=== PATIENT | female | born 1960 | race Caucasian/White ===

== ENCOUNTER → 2020-04-26 11:43 | Outpatient (CLI) | payer OTHER, SELFPAY ==
[2020-04-27 14:06] LABS: COVID19 Sendout Not Detected (Not Detect)
== END ==
PROVIDERS: Visit Provider Family Medicine
DX: Z11.59 Encounter for screening for other viral diseases (principal)
CPT/HCPCS: 87635

== ENCOUNTER 2020-04-30 10:25 | Observation (INO) | payer OTHER, SELFPAY ==
[2020-04-22 08:44] VITALS: BMI 29.2
[2020-04-29] VITALS (17 sets, daily range): BP systolic 78–133; BP diastolic 31–80; PULSE 5–70; RESP 9–17; TEMP 35.9–37.6; O2SAT 91–100; BMI 29.2
[2020-04-29] MEDS: ACETAMINOPHEN 325 MG TABLET 975 MG PO (11:10)
[2020-04-29] MEDS: LACTATED RINGERS 1,000 ML 42 ML IV ×2 (11:36→15:20)
--- NOTE | 2020-04-29 12:36 | PM.PREOP ---
Pre-operative Note COVID-19 COVID-19 status: Negative Result date/Date tested (Pos, Neg/Pending): 04/27/20 Interval Note History & Physical reviewed/Exam performed by Physician: Yes Changes to H&P: No
--- NOTE | 2020-04-29 13:00 | DI.RAD.S_ITS ---
PROCEDURE: XR PELVIS 1-2V INDICATIONS: Post Op TECHNIQUE: 1 view of the lower pelvis acquired. COMPARISON: [facility] [place], [place], XR PELVIS WITH LATERAL HIP RIGHT, 03/19/2020, 13:37. FINDINGS: Bones: Patient is status post right hip arthroplasty, with hardware components in expected positions. The hip joint appears congruent. The visualized bony structures appear intact. Soft tissues: Overlying postoperative changes are noted. No suspicious soft tissue densities. IMPRESSION: Status post right hip arthroplasty. Dictated by: Felipa Eldridge M.D. on 04/29/2020 at 15:50 Approved by: Felipa Eldridge M.D. on 04/29/2020 at 15:50
[2020-04-29] MEDS: CEFAZOLIN 2 GM/100 ML FROZ.PIGGY IV (13:19)
--- NOTE | 2020-04-29 13:49 | SUR.OPER ---
Lateral on padded OR bed. Gel axillary roll. Arms secured on padded armboard with pillow supporting top arm. Padded hip positioner braces x4 - anterior and posterior chest and pelvis. Additional gel pad used anterior pelvis. Gel pad under bottom leg from knee to foot and secured with tape over sheet.
[2020-04-29] MEDS: TRANEXAMIC ACID 1,000 MG VIAL 2000 MG INJ ×2 (13:52→14:38)
[2020-04-29] MEDS: MORPHINE 4 MG/ML INJ INJ (13:53)
[2020-04-29] MEDS: ROPIVACAINE 0.5% PF 5 MG/ML 20ML VIAL 60 ML INJ (13:53)
--- NOTE | 2020-04-29 14:50 | PM.OP.1 ---
Operative Date/Time/Diagnoses Date of procedure: 04/29/20 Time of procedure: 14:50 Pre-op diagnosis: Right hip degenerative joint disease Post-op diagnosis: same Procedure & Clinicians Procedure: Right total hip arthroplasty (CPT code 27200 with captain assistant) Same procedure as scheduled: Yes Indications: Patient is an 59-year-old female with severe right hip DJD. The patient has pain with activities and at rest, limited ambulation and activity tolerance, difficulties with ADLs, and failure of conservative treatment. We have discussed the nature of condition, treatment options, risks and benefits, and patient elects to proceed with total hip arthroplasty and gives informed consent. Surgeon: Amari Scott Site Safety Manager: Peterson Louis Anesthesia Type: General Operative Notes Closure Type: primary Specimen(s): none sent Prosthetic devices, grafts, tissues, transplants, or devices: Acetabulum: Mckinnon and Nephew R3 acetabular component size 48 mm Femoral component: Mckinnon [employer] Nephew Anthology stem size 6 with standard offset Femoral head: 32 mm + 0 Oxinium Estimated Blood Loss (mL): 300 Blood products transfused: none Procedure in detail: After satisfaction induction of anesthetic, and administration of IV antibiotics, the patient was positioned in the lateral decubitus position with all bony prominences well padded and pelvic position secured using a hip lead electrical engineer positioning device. Right hip and lower extremity prepped and draped in the usual sterile fashion, 1st dose of intravenous tranexamic acid was administered, then a longitudinal incision was created centered over the greater trochanter and carried sharply through the skin and subcutaneous tissues down to the fascia santiago which was divided longitudinally and retracted with a Charnley retractor. External rotators visualize, cut, tagged, and retracted posteriorly, then the capsule was cut in a T-type fashion with the corners tagged and retracted. Hip was dislocated and femoral neck cut made according to preoperative templating. Acetabular retractors then placed, and the acetabular labrum and osteophytes were excised. The acetabulum was then sequentially reamed to 47 mm with an excellent circumferential ream and fit with the trial. The trial component was removed and a permanent size 48 mm Mckinnon and Nephew R3 acetabular component was selected, positioned, and impacted with satisfactory position and fixation achieved. Permanent liner was then inserted with the elevated lip directed posteriorly. Soft tissue then removed off the lateral femoral neck in the lateral neck was entered using a box osteotome. T-handled reamers placed down the canal followed by sequential broaching to 6 with the final broach left in place for trial reduction which demonstrated excellent leg length, range of motion, and stability characteristics with a 32 mm +0 trial ball. The trial and broach were removed, and a permanent size 6 Mckinnon and Nephew Anthology stem was selected and inserted with excellent position and fixation achieved. Another trial reduction yielded the above characteristics so the trial ball was exchanged for a permanent 32 mm +0 Oxinium ball. The hip was irrigated and reduced and excellent leg length range of motion and stability characteristics were achieved and maintained. Periarticular tissues were infiltrated with ropivacaine and morphine. The hip was copiously irrigated, and the capsule repaired with #2 Ethibond, and the piriformis was repaired back to the greater trochanter with the same. Fascia santiago closed with interrupted #1 Ethibond sutures, and the subcutaneous tissues were closed in 2 layers of 0 Vicryl and 2 0 Vicryl. Skin was closed with roz and sterile dressings applied. Second dose of tranexamic acid was administered intravenously, and the anesthetic was terminated. Complications: none Post-operative Condition: stable Disposition: PACU Plan for aftercare: Patient will be admitted to the acute care [facility], and anticipate discharge on postop day 1 or 2 with follow-up in office in 10-14 days. Outpatient physical therapy will be arranged and patient will continue to observe posterior hip precautions. .
[2020-04-29] MEDS: HYDROMORPHONE 2 MG INJ IV ×2 (15:32→15:37)
--- NOTE | 2020-04-29 15:53 | SUR.PHASEI ---
BP dropped to 78/39 after arrival to PACU. Anesthesiologist notified. Run 2nd bag of IVF in on pressure bag and placed pt in trendelenberg. Monitored BP and up to low 100's. Pt continued to c/o abt pain, gave 0.25 mg IV dilaudid x2. Pt began having periods of apnea and needed reminders to breathe. Pt continues to state pain is 9/10 (down a teensy bit which was called an 8/10). FLACC score was 4/10. TM
[2020-04-29] MEDS: hydrOXYzine 50 MG/ML INJ 25 MG IM (16:16)
[2020-04-29] MEDS: HYDROCODONE/ACET 5/325 TABLET 1 TAB PO ×3 (17:01→20:03)
[2020-04-29] MEDS: ACETAMINOPHEN 325 MG TABLET 650 MG PO (17:01)
[2020-04-29] MEDS: LACTATED RINGERS 1,000 ML 125 ML IV (17:01)
[2020-04-29] MEDS: methocarbamoL 500 MG TABLET PO ×2 (17:01→20:04)
[2020-04-29] MEDS: hydrOXYzine pamoate 25 MG CAPSULE PO (19:10)
[2020-04-29] MEDS: DOCUSATE 100 MG CAPSULE PO (20:04)
[2020-04-29] MEDS: PRAVASTATIN 20 MG TABLET 40 MG PO (20:04)
[2020-04-29] MEDS: BUSPIRONE 5 MG TABLET 10 MG PO (20:04)
[2020-04-29] MEDS: PRAMIPEXOLE 0.25 MG TABLET 0.75 MG PO (20:05)
[2020-04-30] VITALS: BP 107/59; PULSE 62; RESP 16; TEMP 36.1; O2SAT 98
[2020-04-30] MEDS: OXYCODONE IR 5 MG TABLET PO ×3 (00:09→13:35)
[2020-04-30] MEDS: LACTATED RINGERS 1,000 ML 125 ML IV (01:08)
[2020-04-30] MEDS: HYDROCODONE/ACET 5/325 TABLET 1 TAB PO ×2 (01:12→02:02)
[2020-04-30] MEDS: hydrOXYzine pamoate 25 MG CAPSULE PO (02:02)
[2020-04-30 06:00] VITALS: BP 101/49; PULSE 93; RESP 16; TEMP 36.5; O2SAT 93
[2020-04-30] MEDS: LIOTHYRONINE 5 MCG TABLET PO (06:04)
[2020-04-30] MEDS: LEVOTHYROXINE 100 MCG TABLET PO (06:04)
[2020-04-30] MEDS: HYDROMORPHONE 1 MG INJ 0.2 MG IV ×2 (06:10→20:19)
--- NOTE | 2020-04-30 06:25 | PC.NURSE ---
Pt is A and O x 4 VSS. Pt has rated her pain 8-10/10 incl when laying still in bed. She does not appear to be in severe pain, and this was discussed, but she was clear that she was in extreme pain. Meds available at doses as written not helpful, but she was able to sleep briefly. She says her L hip was not as painful as this surgery. She denies N. She is using BSC and FWW. HRR and LS clear.
--- NOTE | 2020-04-30 06:52 | PC.NURSE ---
RN CARDIAC REHAB note: patient to get up is a two person assist to get to the BSC. Patient requests two people there, and that one person holds her leg the entire time to get to the commode. Often times patient doesn't follow directions, instead saying this feels better. I can't do that. Patient needs to go to the bathroom as soon as she calls and requests a lot of help. Alerted RN.
--- NOTE | 2020-04-30 07:33 | P.PN_ITS ---
Subjective Subjective Date Patient Seen: 04/30/20 Time Patient Seen: 07:33 Interval history: Patient is POD#1 s/p right INOCENCIO with Dr. Scott. Poor pain control overnight, she takes [place] 5/325mg TID scheduled at home. Hss been up to bedside commode. No nausea, vomiting, chest pain, shortness of breath. Exam Vital Signs (past 8 hours): - 04/30/20 00:00 04/30/20 06:00 Temperature 97.0 F L 97.7 F Pulse Rate 62 93 H Respiratory Rate 16 16 Blood Pressure 107/59 L 101/49 L Pulse Oximetry 98 93 Oxygen Delivery Method Room Air Oxygen Flow Rate 0 Narrative Exam Narrative: 59 year old female resting in bed. Alert and oriented. Dressing in place over right hip is CDI. Neurovascularly intact in distal extremity. Palpable pedal pulse. Calves are soft. Assessment & Plan Assessment & Plan narrative: Patient with poor pain control who is not opioid naive. Will d/c home dose of [place] and transition to Oxycodone today, 5mg for moderate 10mg severe. Vistaril increased as well. Continue scheduled Tylenol. ASA 81mg for DVT prophylaxis. Work with PT today. Will consider discharge to home later today if doing well with PT/pain control, otherwise d/c to home tomorrow. Quality VTE Deep Vein Thrombosis/Pulmonary Embolism Present on Admission: No
[2020-04-30 07:54] LABS: Hematocrit 22.6 % (36-46)
[2020-04-30 08:05] VITALS: BP 105/52; PULSE 54; RESP 19; TEMP 37.1; O2SAT 95
[2020-04-30] MEDS: ACETAMINOPHEN 325 MG TABLET 650 MG PO ×3 (08:28→20:12)
[2020-04-30] MEDS: buPROPion XL 150 MG TAB PO (08:29)
[2020-04-30] MEDS: FLUTICASONE 120 SPRAY/16 GM SPRAY.SUSP NASAL (08:30)
[2020-04-30] MEDS: ESCITALOPRAM 10 MG TABLET PO (08:30)
[2020-04-30] MEDS: MULTIVITAMIN 1 TABLET 1 TAB PO (08:30)
[2020-04-30] MEDS: DOCUSATE 100 MG CAPSULE PO ×2 (08:30→20:12)
[2020-04-30] MEDS: estradioL 1 MG TABLET 2 MG PO (08:30)
[2020-04-30] MEDS: OXYCODONE IR 10 MG TABLET PO ×4 (08:31→22:00)
[2020-04-30] MEDS: polyethylene glycoL 3350 17 GM POWD.PACK PO (08:31)
[2020-04-30] MEDS: methocarbamoL 500 MG TABLET PO ×3 (08:39→20:12)
[2020-04-30] MEDS: BUSPIRONE 5 MG TABLET 10 MG PO ×2 (08:39→20:15)
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
--- NOTE | 2020-04-30 11:41 | PC.NURSE ---
Day shift: Pt sleeping for 2 hours now after her morning meds and 10mg PO oxycodone. No s/s of pain or discomfort. Pt's spouse in room for support. RR 12. Call light in reach. Bed alarm is on. Will continue to monitor.
[2020-04-30 12:39] VITALS: BP 99/56; PULSE 64; RESP 19; TEMP 36.6; O2SAT 95
--- NOTE | 2020-04-30 13:39 | PT.IPTN ---
Current Diagnoses Unilateral primary osteoarthritis, right hip (04/30/20) Surgery Performed Operation Date: 04/29/20 12:45 Actual Procedures p Total Hip Arthroplasty(Right) - Amari Scott MD Physical Therapy Treatment Note M2 PT-IP Current Condition Start: 04/30/20 08:26 Freq: NEEDED Status: Active Protocol: Document 04/30/20 10:00 AW (Rec: 04/30/20 12:22 AW [id number]) Physical Therapy Current Condition Current Condition Evaluation Date 04/30/20 Treatment Diagnosis R INOCENCIO with posterior approach; difficulty in walking Onset Date 04/29/20 Precautions Posterior Hip Precautions No Hip Flexion > 90 degrees,No Hip Internal Rotation,No Hip Adduction Weight Bearing Status Weight Bearing Status Weight Bear as Tolerated M3 PT-IP Subjective Start: 04/30/20 08:26 Freq: NEEDED Status: Active Protocol: Document 04/30/20 13:29 AW (Rec: 04/30/20 13:39 AW [email or web address]) Subjective Physical Therapy Visit Type Type Treatment Note Visit Start Time 13:01 Visit Stop Time 13:28 Total Visit Minutes 27 Notes Pt's spouse, Jamil, attends this session. Physical Therapy Visit Comments Patient Comments Pt just returned from the toilet but is willing to participate with PT Therapy Pain Assessment Pain When Pain Assessed During Mobility Pain Present Pain Present Pain Reported Location right hip Intensity 7 Pain Management Techniques Apply Cold,Re-positioning, Timing of Activity with Medications M4 PT-IP Mobility and Gait Start: 04/30/20 08:26 Freq: NEEDED Status: Active Protocol: Document 04/30/20 13:29 AW (Rec: 04/30/20 13:39 AW [email or web address]) PT-Bed Mobility Assessment Supine to Sit Supine to Sit Minimal Assistance,1 Person Assistance,Head of Bed Elevated,Bedrails Sit to Supine Sit to Supine Minimal Assistance,1 Person Assistance PT-Transfer Assessment Sit to and From Stand Sit to and from Stand Minimal Assistance,1 Person Assistance,Use of Upper Extremities Equipment Transfer Assistive Device Gait Belt,Front Wheeled Walker Transfers Transfer Destination Bed Transfer Technique pt ambulated with FWW Transfer Ability Level of Assist Minimal Assistance,1 Person Assistance,Use of Upper Extremities Comments Mobility Comments Pt had just returned from the toilet but agreed to mobilize with PT. With HOB elevated, she used a strap to lift her right leg toward the right side of the bed and needed min assist to swivel her hips toward same side. Pt sat EOB where BP was assessed at 89/57 but pt denied any symptoms other than pain. She completed sit to stand from bed in lowest position min A x 1 and shifted weight back and forth with heavy BUE weightbearing on the walker noted. She agreed to ambulate in the halls for a total of 60 feet with FWW CGA. On return to the room, she sat on the left side of the bed and needed min A x 1 to elevate her legs. Pt was positioned on the bed with call light and all needs within reach. Her remained at bedside. Gait Assessment Gait Gait Assistance Required: Contact Guard Assist,Minimum Assistance Distance (Feet) 60 Able to Maintain Weight Bearing Status Yes During Gait Assistive Devices Assistive Device Gait Belt,Front Wheeled Walker Orthotic/Prosthetic Devices or Brace: No Gait Deviations General Gait Pattern Antalgic,Decreased Stride Length,Decreased Feet Clearance,Flexed Trunk,Step-to Gait Factors Limiting Gait Function Factors Limiting Gait Function Decreased Activity Tolerance, Decreased Sensation,Decreased Strength,Limited Range of Motion,Pain,Poor Balance,Poor Safety Awareness Comments Gait Comments Gait was slow but steady. Pt complained of feeling shaky at ~30 feet but gait pattern did not change and pt required no increase in assist. Initial gait was characterized by step -to patterning but pt was able to normalize step lengths in response to cues. All gait was quite slow with pt wincing every step. Stair Climbing Assessment Comments Stair Climbing Comments Not assessed. Pt must clear stairs prior to discharge. M5 PT-IP Objective Assessments Start: 04/30/20 08:26 Freq: NEEDED Status: Active Protocol: Document 04/30/20 10:00 AW (Rec: 04/30/20 12:22 AW [id number]) Orientation Orientation/Cognition Level of Alertness Alert Orientation Name,Day of Week,Place, Situation Language Function Ability No Deficits Noted Safety Awareness Decreased Safety Awareness Gross Range of Motion Lower Extremity ROM Assessment Right Impaired Strength Lower Extremity Strength Assessment Right Impaired Hip 3-/5 Knee 4-/5 Comments Strength Comments LLE grossly 4/5 Sensation Assessment Sensation Gross Sensation Right LE Impaired Proprioception (Position) Impaired M6 PT-IP Treatment Start: 04/30/20 08:26 Freq: NEEDED Status: Active Protocol: Document 04/30/20 13:29 AW (Rec: 04/30/20 13:39 AW [email or web address]) Physical Therapy Treatment Education Education Provided Precautions,Weight Bearing Status,Post-Op Packet,Safety Other Treatments Other Treatment Performed Reviewed hip precautions with pt able to recall all three. M7 PT-IP Assessment and Plan Start: 04/30/20 08:26 Freq: NEEDED Status: Active Protocol: Document 04/30/20 13:29 AW (Rec: 04/30/20 13:39 AW [email or web address]) PT Summary Assessment and Plan Summary Impairments Pain,ROM,Strength,Balance, Sensation,Bed Mobility, Transfers,Gait,Activity Tolerance Progress Towards Goals Slow Progress due to Pain Assessment Summary Taylor was able to progress her gait distance today. Gait speed is quite slow but pt is steady with use of FWW. Pt continues to be limited by pain. BP has trended low and pt reports it has been much lower than her usual which was reported to RN. In spite of low BP, pt remains asymptomatic. Goals Bed Mobility Goal Standby Assistance Transfer Goal Standby Assistance,Front Wheeled Walker Gait Goal Standby Assistance,Front Wheel Walker Gait Distance 200 Other Goals - up/down two steps with ACETYLENE BURNER or LRAD CGA Days to Meet Goals 5 Frequency of Treatment Frequency Of Treatment Twice a Day Treatment Plan Physical Therapy Treatment Plan Bed Mobility Training,Transfer Training,Gait Training, Therapeutic Exercise,Balance Retraining,Discharge Planning, Hot or Cold Pack,Neuromuscular Re-ed,Manual Therapy Other Recommendations and Next Treatment review precautions, monitor VS Focus , transfers and gait training with FWW Recommendations To Nursing Amount of Assist Needed 1 Person Assist Discharge Recommendations PT Discharge Recommendations Home with Assistance, Outpatient PT Transportation Needs at Discharge Private Vehicle
--- NOTE | 2020-04-30 15:13 | CM.IDA ---
Initial DCP Assessment Note Pt is a 59 yo female, resident of [place], now POD#1 from Rt hip surgery w/ Dr Scott PCP: Safia Arceo Pay: [place] Reviewed chart, pt discussed in multidisciplinary rounds this morning. Therapy has cleared pt for return home w/family to assist and pt has planned for home, DC likely this afternoon vs tomorrow. Pt eager to return home, supportive spouse at bedside, no needs identified from this LEARNING OFFICER No needs expected from DC planning team although will remain available in case this changes before DC. Marnie Celis, LEARNING OFFICER
[2020-04-30 15:35] VITALS: BP 118/58; PULSE 64; RESP 20; TEMP 36.7; O2SAT 100
[2020-04-30] MEDS: ASPIRIN EC 81 MG TABLET PO (20:12)
[2020-04-30] MEDS: PRAVASTATIN 20 MG TABLET 40 MG PO (20:12)
[2020-04-30] MEDS: PRAMIPEXOLE 0.25 MG TABLET 0.75 MG PO (20:15)
[2020-04-30 20:33] VITALS: BP 118/64; PULSE 66; RESP 18; TEMP 36.6
[2020-05-01] MEDS: OXYCODONE IR 10 MG TABLET PO ×5 (01:05→13:39)
[2020-05-01 01:10] VITALS: BP 101/55; PULSE 67; RESP 16; TEMP 36.2; O2SAT 92
[2020-05-01] MEDS: LEVOTHYROXINE 100 MCG TABLET PO (05:21)
[2020-05-01] MEDS: LIOTHYRONINE 5 MCG TABLET PO (05:21)
[2020-05-01 05:58] VITALS: BP 110/52; PULSE 71; RESP 16; TEMP 36.3
[2020-05-01 07:55] VITALS: BP 105/57; PULSE 74; RESP 18; TEMP 36.9; O2SAT 92
[2020-05-01] MEDS: methocarbamoL 500 MG TABLET PO (08:07)
[2020-05-01] MEDS: DOCUSATE 100 MG CAPSULE PO (08:07)
[2020-05-01] MEDS: MULTIVITAMIN 1 TABLET 1 TAB PO (08:07)
[2020-05-01] MEDS: ASPIRIN EC 81 MG TABLET PO (08:07)
[2020-05-01] MEDS: buPROPion XL 150 MG TAB PO (08:07)
[2020-05-01] MEDS: ACETAMINOPHEN 325 MG TABLET 650 MG PO (08:09)
[2020-05-01] MEDS: estradioL 1 MG TABLET 2 MG PO (08:15)
[2020-05-01] MEDS: BUSPIRONE 5 MG TABLET 10 MG PO (08:15)
[2020-05-01] MEDS: ESCITALOPRAM 10 MG TABLET PO (08:15)
[2020-05-01] MEDS: FLUTICASONE 120 SPRAY/16 GM SPRAY.SUSP NASAL (08:16)
--- NOTE | 2020-05-01 08:18 | PM.DS.1 ---
History of Present Illness History of Present Illness Date Patient Seen: 05/01/20 Time Patient Seen: 08:18 Chief complaint: Right Total Hip Arthroplasty *OPB* Narrative: Please see HPI previously recorded in the chart. Discharge Providers Provider Date of admission: 04/30/20 10:25 Discharge Date: 05/01/20 Primary care physician: Safia Arceo PA-C Consults: 04/29/20 16:32 Consult to Discharge Planning Routine Comment: Consult to Physical Therapy Evaluate & Treat Comment: Physician Instructions: post op INOCENCIO protocol Consult to Respiratory Therapy Evaluate & Treat Comment: Physician Instructions: Evaluate and treat Discharge provider: Molly Enriquez PA-C Summary Hospital Course Discharge Diagnosis: s/p right INOCENCIO Hospital Course: Patient is an 59-year-old female with severe right hip DJD. The patient has pain with activities and at rest, limited ambulation and activity tolerance, difficulties with ADLs, and failure of conservative treatment. We have discussed the nature of condition, treatment options, risks and benefits, and patient elects to proceed with total hip arthroplasty and gives informed consent. She underwent right INOCENCIO with Dr. Scott which she tolerated well without complications. POD#1 she struggled with pain control initially which on Oxycodone. She was able to mobilize with PT. BP has been low but she denies any symptoms. No complaints. She has appropriate caregivers at home. She is stable for discharge to home on POD#2. Exam Vital Signs (past 8 hours): - 05/01/20 01:10 05/01/20 05:58 Temperature 97.2 F L 97.4 F L Pulse Rate 67 71 Respiratory Rate 16 16 Blood Pressure 101/55 L 110/52 L Pulse Oximetry 92 Oxygen Delivery Method Room Air Oxygen Flow Rate 0 Narrative Exam Narrative: 59 year old female resting in bed alert and oriented, no acute distress. Dressing in place is CDI. She is able to perform a weak straight leg raise. Calves are soft. Palpable pedal pulse. Objective Labs Result Diagrams: 04/30/20 07:45 Discharge Plan Discharge Plan Patient Disposition: Home Discharge orders & Medications Prescriptions: New methocarbamol 500 mg Tablet 500 mg PO TID Qty: 60 RF: 0 acetaminophen 325 mg Tablet 650 mg PO TID Qty: 40 RF: 0 aspirin 81 mg Tablet,Delayed Release (Dr/Ec) 81 mg PO BID Qty: 40 RF: 0 docusate sodium [DOK] 100 mg Capsule 100 mg PO BID Qty: 40 RF: 0 oxycodone 5 mg Tablet 5 mg PO Q3HR PRN (Reason: Pain, Moderate (4-6)) Qty: 60 RF: 0 Continued losartan 50 mg Tablet 50 mg PO DAILY RF: 0 pravastatin 40 mg Tablet 40 mg PO BEDTIME RF: 0 liothyronine 5 mcg Tablet 5 mcg PO DAILY RF: 0 buspirone 10 mg Tablet 10 mg PO BID RF: 0 dextroamphetamine-amphetamine [Adderall] 20 mg Tablet 20 mg PO DAILY RF: 0 pramipexole 0.25 mg Tablet 0.75 mg PO BEDTIME RF: 0 estradiol 2 mg Tablet 2 mg PO DAILY RF: 0 fluticasone propionate 50 mcg/actuation [place],Suspension 1 spray INTRANASAL DAILY RF: 0 escitalopram oxalate 20 mg Tablet 10 mg PO DAILY RF: 0 bupropion HCl 150 mg Tablet Extended Release 24 Hr 150 mg PO QAM RF: 0 multivitamin Tablet 1 tab PO DAILY RF: 0 levothyroxine 100 mcg Tablet 100 mcg PO DAILY RF: 0 Discontinued methocarbamol 500 mg Tablet 500 mg PO TID RF: 0 hydrocodone-acetaminophen 5-325 mg Tablet 1 tab PO TID RF: 0 Follow up/Referrals: Amari Scott MD [Physician] - As previously scheduled (PLEASE CALL DR. SCOTT'S OFFICE TO SCHEDULE/CONFIRM YOUR FOLLOW UP APPOINTMENT.) Safia Arceo PA-C [Primary Care Provider] - Diet/Activity/Treatments Diet: Diet as Tolerated Activity: Posterior hip precautions. Use a front wheel walker for support. Skin/Wound/Dressing Care Report to your healthcare provider any signs of infection, such as:: chills, fever, night sweats, unusual drainage and unusual redness Dressing: Dressing is to remain in place until your 2 week follow up visit. Battery pack may be removed in 1 week when it stops running and also removed/replaced for showers. Visit Report/Discharge Packet Instructions: DI for Hip Replacement, How to Prevent Falls, DI for Prescription Opioid Use Visit Report Forms: Patient Portal/API, Stroke Signs & Symptoms Discharge Data Primary Care Provider: Safia Arceo Attending Provider: Amari Scott Admit Date/Time: 04/30/20 10:25 Quality VTE Deep Vein Thrombosis/Pulmonary Embolism Present on Admission: No
--- NOTE | 2020-05-01 10:04 | PT.IPTN ---
Current Diagnoses Unilateral primary osteoarthritis, right hip (04/30/20) Surgery Performed Operation Date: 04/29/20 12:45 Actual Procedures p Total Hip Arthroplasty(Right) - Amari Scott MD Physical Therapy Treatment Note M2 PT-IP Current Condition Start: 04/30/20 08:26 Freq: NEEDED Status: Active Protocol: Document 04/30/20 10:00 AW (Rec: 04/30/20 12:22 AW [id number]) Physical Therapy Current Condition Current Condition Evaluation Date 04/30/20 Treatment Diagnosis R INOCENCIO with posterior approach; difficulty in walking Onset Date 04/29/20 Precautions Posterior Hip Precautions No Hip Flexion > 90 degrees,No Hip Internal Rotation,No Hip Adduction Weight Bearing Status Weight Bearing Status Weight Bear as Tolerated M3 PT-IP Subjective Start: 04/30/20 08:26 Freq: NEEDED Status: Active Protocol: Document 05/01/20 09:25 KS (Rec: 05/01/20 11:45 KS [id number]) Subjective Physical Therapy Visit Type Type Treatment Note Visit Start Time 09:25 Visit Stop Time 10:04 Total Visit Minutes 39 Number of WIRING TECHNICIAN Visits 1 Physical Therapy Visit Comments Patient Comments Pt agreeable to work w/ therapy. Pts CELE present for caregier training. Therapy Pain Assessment Pain When Pain Assessed During Mobility Pain Present Pain Present Pain Reported Location right hip Intensity 5 Scale Used Numeric (0 - 10) Description Aching,Sharp,Tightness,With Movement Pain Behaviors Guarding,Holding Area,Wincing Pain Management Techniques Apply Cold,Re-positioning, Timing of Activity with Medications M4 PT-IP Mobility and Gait Start: 04/30/20 08:26 Freq: NEEDED Status: Active Protocol: Document 05/01/20 09:25 KS (Rec: 05/01/20 11:45 KS [id number]) PT-Bed Mobility Assessment Supine to Sit Supine to Sit Contact Guard Assistance,1 Person Assistance,Head of Bed Elevated Sit to Supine Sit to Supine Minimal Assistance,1 Person Assistance Scooting Scooting to Edge of Bed Contact Guard Assistance PT-Transfer Assessment Sit to and From Stand Sit to and from Stand Contact Guard Assistance,1 Person Assistance,Use of Upper Extremities Equipment Transfer Assistive Device Gait Belt,Front Wheeled Walker Transfers Transfer Destination Bed Transfer Technique pt ambulated with FWW Transfer Ability Level of Assist Minimal Assistance,1 Person Assistance,Use of Upper Extremities Comments Mobility Comments Pt in bed upon arrival from therapy. Instructed pt to use gait belt for self assist of RLE out of bed, pt sup<>sit w/ HOB elevated CGA. Pt states she has hospital bed to use at home. Pt then scooted to EOB and sit<>stand CGA w/ FWW. Pt then ambulated ~40 ft to platform w/ FWW and CGA. Pt ascended/descended 1 platform step x2 w/ FWW and CGA and cues for sequencing. WIRING TECHNICIAN assisted pt on first step, pts CELE provide appropriate cues and assist on second step. Pt then ambulated additional [address] w/ FWW and CGA provided by CELE and returned to room. Pts stride length and foot clearance improved w/ further ambulation distance and cues. PT CGA stand<>sit and Min A provided by CELE for sit<>sup in bed. Reviewed LE strengthening exercises. Pt and CELE state they feel safe to return home. Gait Assessment Gait Gait Assistance Required: Contact Guard Assist,Minimum Assistance Distance (Feet) 140 Able to Maintain Weight Bearing Status Yes During Gait Assistive Devices Assistive Device Gait Belt,Front Wheeled Walker Gait Deviations General Gait Pattern Antalgic,Decreased Stride Length,Decreased Feet Clearance,Flexed Trunk Factors Limiting Gait Function Factors Limiting Gait Function Decreased Activity Tolerance, Decreased Sensation,Decreased Strength,Limited Range of Motion,Pain,Poor Balance,Poor Safety Awareness Comments Gait Comments Please refer to mobility section for details. Stair Climbing Assessment Evaluation Level of Assist On Stairs Contact Guard Assistance,1 Person Assistance Devices Stair Climbing Assistive Devices Front Wheel Walker Technique/Endurance Stair Climbing Direction Ascend and Descend Stair Climbing Technique Step to Step Number of Steps Climbed 1 Stair Climbing Set # Repetitions (reps) 2 Comments Stair Climbing Comments Pt ascended/descended 1 platform step x2 w/ FWW and CGA w/ cues for leg sequencing . Pts CELE was able to provide appropriate cues and guarding during stairs and both state they feel safe to perform at home. PT-Balance Assessment Sitting Balance and Reactions Static Sitting Balance Ability Good Dynamic Sitting Balance Ability Good Standing Balance and Reactions Static Standing Balance Ability Good Dynamic Standing Balance Ability Fair Device Used FWW M5 PT-IP Objective Assessments Start: 04/30/20 08:26 Freq: NEEDED Status: Active Protocol: Document 04/30/20 10:00 AW (Rec: 04/30/20 12:22 AW [id number]) Orientation Orientation/Cognition Level of Alertness Alert Orientation Name,Day of Week,Place, Situation Language Function Ability No Deficits Noted Safety Awareness Decreased Safety Awareness Gross Range of Motion Lower Extremity ROM Assessment Right Impaired Strength Lower Extremity Strength Assessment Right Impaired Hip 3-/5 Knee 4-/5 Comments Strength Comments LLE grossly 4/5 Sensation Assessment Sensation Gross Sensation Right LE Impaired Proprioception (Position) Impaired M6 PT-IP Treatment Start: 04/30/20 08:26 Freq: NEEDED Status: Active Protocol: Document 05/01/20 09:25 KS (Rec: 05/01/20 11:45 KS [id number]) Physical Therapy Treatment Exercises Exercises Ankle Pumps,Gluteal Sets,Quad Sets,Heel Slides Education Education Provided Precautions,Weight Bearing Status,Post-Op Packet,Safety Other Treatments Other Treatment Performed Reviewed hip precautions with pt able to recall all three. M7 PT-IP Assessment and Plan Start: 04/30/20 08:26 Freq: NEEDED Status: Active Protocol: Document 05/01/20 09:25 KS (Rec: 05/01/20 11:45 KS [id number]) PT Summary Assessment and Plan Summary Impairments Pain,ROM,Strength,Balance, Sensation,Bed Mobility, Transfers,Gait,Activity Tolerance Progress Towards Goals Slow Progress due to Pain Assessment Summary Pt showed improvements w/ bed mobility and ambulation today. She ambulated ~140 ft w/ FWW and CGA and her gair improved w/ distance and cues for increased stride length and heel toe walking. She ascended /descended 1x platform step x2 w/ CGA and cues for leg sequencing. Completed caregiver training w/ pts CELE who is able to safely provide gait belt, cues and assist w/ bed mobility, ambulation, and stairs. Pt able to use gait belt for RLE self assist out of bed, bt requires Min A for RLE into bed which CELE able to provide. Pt and CELE feel safe to return home. Pt will benefit from outpatient rehab, which she has set up. Goals Bed Mobility Goal Standby Assistance Transfer Goal Standby Assistance,Front Wheeled Walker Gait Goal Standby Assistance,Front Wheel Walker Gait Distance 200 Other Goals - up/down two steps with CLOTH STOCK SORTER or LRAD CGA Days to Meet Goals 5 Frequency of Treatment Frequency Of Treatment Twice a Day Treatment Plan Physical Therapy Treatment Plan Bed Mobility Training,Transfer Training,Gait Training, Therapeutic Exercise,Balance Retraining,Discharge Planning, Hot or Cold Pack,Neuromuscular Re-ed,Manual Therapy Other Recommendations and Next Treatment review precautions, monitor VS Focus , transfers and gait training with FWW Recommendations To Nursing Amount of Assist Needed 1 Person Assist Discharge Recommendations PT Discharge Recommendations Home with Assistance, Outpatient PT Transportation Needs at Discharge Private Vehicle
[2020-05-01 11:29] VITALS: BP 126/57; PULSE 71; RESP 20; TEMP 36.7; O2SAT 99
--- NOTE | 2020-05-01 12:36 | CM.DPNOTE ---
DC Note DC home today as expected, no needs identified from this JOB SITE SUPERVISOR. Patient eager to return home w/spouse JW
--- NOTE | 2020-05-01 14:04 | PC.NURSE ---
Day shift note: Patient discharge home per MD order, cleared by PT. Discussed importance of Hip precautions, new medications, and s/sx of infection. Verbalized understanding of instructions. Discharge home via private vehicle in stable condition.
== END 2020-05-01 14:00 | disposition home or self-care (01) ==
LOC: OR 12:43 → AC 12:43
PROVIDERS: Admitting Provider Physician Assistant Surgical; PCP Physician Assistant; Referring Provider Orthopaedic Surgery; Visit Provider Orthopaedic Surgery
PROC: 0SR90JZ Replacement of Right Hip Joint with Synthetic Substitute, Open Approach (ICD-10-PCS; CPT 27130; principal; 2020-04-29 12:45)
DX: M16.11 Unilateral primary osteoarthritis, right hip (principal); F41.9 Anxiety disorder, unspecified; F32.9 Major depressive disorder, single episode, unspecified; M79.7 Fibromyalgia; I10 Essential (primary) hypertension
CPT/HCPCS: 27130; 36415; 36592; 72170; 85014; 85018; 97110; 97116; 97161; 97530; C1776; G0378; J0690; J1100; J1170; J2270; J2405; J2704; J3010; J3410